=== PATIENT | male | born 1965 | race Two or more races ===

== ENCOUNTER 2017-07-01 12:00 | Emergency (ER) | payer OTHER ==
[2017-07-01] MEDS ORDERED: NS 1,000 ML IV ONE (12:58)
[2017-07-01 13:05] LABS: PLATELET COUNT 236 10^3/uL (150-400)
[2017-07-01] MEDS ORDERED: IOPAMIDOL (ISOVUE-300) 100 ML BTL ONE (13:25)
--- NOTE | 2017-07-01 14:14 | EDPHY ---
H & P Time Seen by Provider: 07/01/17 12:30 HPI/ROS: CHIEF COMPLAINT: Abdominal pain HISTORY OF PRESENT ILLNESS: Patient presents with generalized abdominal pain. He is visiting from [place] where he has lived since last year. He is originally from [place]. He is in the [employer] [facility] [employer] working for [employer]. He states that 2 or 3 weeks ago he developed abdominal pain. He described it as "all over". It was intermittent and associated with some gassiness. Last Sunday he had 1 episode of diarrhea and then went to the [facility] clinic to be checked out. The doctor there diagnosed him with gastroenteritis and recommended he take loperamide. He has been doing this 3 times a day since last Sunday. Yesterday after dinner he noticed a little bit more pain and he feels distended today. He has had no vomiting. He has had no diarrhea. He states that the pain is slightly more in the upper abdomen than the lower abdomen. Eating sometimes makes it worse but not consistent. He denies fevers. He has had no urinary symptoms. He has had no out of country travel and has not been on any antibiotics recently. REVIEW OF SYSTEMS: Constitutional: No fever, no chills. Eyes: No discharge. ENT: No sore throat. Cardiovascular: No chest pain, no palpitations. Respiratory: No cough, no shortness of breath. Gastrointestinal: Per HPI Genitourinary: No dysuria. Musculoskeletal: No back pain. Skin: No rashes. Neurological: No headache. General Appearance: Alert, no distress. Eyes: Pupils equal and round no pallor or injection. ENT, Mouth: Mucous membranes moist. Respiratory: There are no retractions, lungs are clear to auscultation. Cardiovascular: Regular rate and rhythm. Gastrointestinal: Abdomen is soft, mildly distended, diffuse tenderness to palpation which is also mild. Bowel sounds normal. No peritoneal signs. Neurological: Awake, alert, no neurologic deficits. Skin: Warm and dry, no rashes. Musculoskeletal: Neck is supple nontender. Extremities are symmetrical, full range of motion, no edema. Psychiatric: Patient is oriented X 3, there is no agitation. Medical/surgical history: No medications, no surgeries. Social history: Occasional alcohol. Nonsmoker. Smoking Status: Never smoked Constitutional: Initial Vital Signs Temperature (C) 36.6 C 07/01/17 12:07 Heart Rate 88 07/01/17 12:07 Respiratory Rate 20 07/01/17 12:07 Blood Pressure 144/82 H 07/01/17 12:07 O2 Sat (%) 97 07/01/17 12:07 O2 Delivery Mode Room Air Allergies/Adverse Reactions: No Known Allergies Allergy (Unverified 07/01/17 12:07) Home Medications: Medication Instructions Recorded NK [No Known Home Meds] 07/01/17 Medical Decision Making - Diagnostics Imaging Results: Imaging Impressions Abdomen CT 07/01/17 12:59 Impression: Negative CT examination of the abdomen and pelvis. Results called to Dr. Tsang at 2:00 PM. Imaging: Discussed imaging studies w/ call center support representative Radiologist Differential Diagnosis: Differential diagnosis includes but is not limited to gastroenteritis, diverticulitis, appendicitis, GERD. After evaluation suspect mild food-borne illness although may represent GERD. Suspect the loperamide 3 times a day has been slowing gut motility leading to mild sense of distension. CT scan unremarkable and labs reassuring. Discussed stopping the loperamide, other dietary changes as well as [id number] options. Will be in the area for 2- 3 weeks ago told to follow up here if symptoms worsen. Stable for discharge. - Data Points Laboratory Results: Laboratory Results 07/01/17 12:20 07/01/17 12:20 07/01/17 07/01/17 12:20 12:20 WBC 5.92 10^3/uL 10^3/uL (3.80-9.50) RBC 4.78 10^6/uL 10^6/uL (4.40-6.38) Hgb 14.9 g/dL g/dL (13.7-17.5) Hct 43.6 % % (40.0-51.0) MCV 91.2 fL fL (81.5-99.8) MCH 31.2 pg pg (27.9-34.1) MCHC 34.2 g/dL g/dL (32.4-36.7) RDW 12.5 % % (11.5-15.2) Plt Count 236 10^3/uL 10^3/uL (150-400) MPV 10.1 fL fL (8.7-11.7) Neut % (Auto) 42.4 % % (39.3-74.2) Lymph % (Auto) 45.3 % H % (15.0-45.0) [place] % (Auto) 7.3 % % (4.5-13.0) Eos % (Auto) 4.1 % % (0.6-7.6) Baso % (Auto) 0.7 % % (0.3-1.7) Nucleat RBC Rel Count 0.0 % % (0.0-0.2) Absolute Neuts (auto) 2.52 10^3/uL 10^3/uL (1.70-6.50) Absolute Lymphs (auto) 2.68 10^3/uL 10^3/uL (1.00-3.00) Absolute Monos (auto) 0.43 10^3/uL 10^3/uL (0.30-0.80) Absolute Eos (auto) 0.24 10^3/uL 10^3/uL (0.03-0.40) Absolute Basos (auto) 0.04 10^3/uL 10^3/uL (0.02-0.10) Absolute Nucleated RBC 0.00 10^3/uL 10^3/uL (0-0.01) Immature Gran % 0.2 % % (0.0-1.1) Immature Gran # 0.01 10^3/uL 10^3/uL (0.00-0.10) Sodium 137 mEq/L mEq/L (135-145) Potassium 4.2 mEq/L mEq/L (3.3-5.0) Chloride 101 mEq/L mEq/L (97-110) Carbon Dioxide 26 mEq/l mEq/l (22-31) Anion Gap 10 mEq/L mEq/L (8-16) BUN 12 mg/dL mg/dL (7-23) Creatinine 0.7 mg/dL mg/dL (0.7-1.3) Estimated GFR > 60 Glucose 149 mg/dL H mg/dL (70-100) Calcium 9.0 mg/dL mg/dL (8.5-10.4) Total Bilirubin 0.6 mg/dL mg/dL (0.1-1.4) Conjugated Bilirubin 0.4 mg/dL mg/dL (0.0-0.5) Unconjugated Bilirubin 0.2 mg/dL mg/dL (0.0-1.1) AST 20 IU/L IU/L (17-59) ALT 26 IU/L IU/L (21-72) Alkaline Phosphatase 63 IU/L IU/L (38-126) Total Protein 7.6 g/dL g/dL (6.3-8.2) Albumin 3.9 g/dL g/dL (3.5-5.0) Lipase 85 IU/L IU/L (23-300) Medications Given: Discontinued Medications Sodium Chloride (Ns) 1,000 mls @ 0 mls/hr IV EDNOW ONE; Wide Open PRN Reason: Protocol Stop: 07/01/17 12:59 Last Admin: 07/01/17 13:16 Dose: 1,000 mls Departure - Departure Clinical Impression: Abdominal pain Qualifiers: Abdominal location: generalized Qualified Code(s): R10.84 - Generalized abdominal pain Condition: Good Instructions: Gas and Bloating (ED), Abdominal Pain (ED) Additional Instructions: Stop taking loperamide unless you have diarrhea. Medications to try over-the- counter tomorrow would include Pepto-Bismol as discussed. He can also try over- the-counter acid reducing medication like Zantac. Reduce dairy products that you eat, increase fluids like water and other clear fluids. If he developed more severe pain, vomiting, fever, or diarrhea you can return to this emergency department for recheck. Otherwise follow up with the primary care doctor when you get back to [place]. Referrals: NONE *PRIMARY CARE P,. [Primary Care Provider] - As per Instructions
[2017-07-01 14:36] VITALS: BP 167/80
== END 2017-07-01 14:33 | disposition home or self-care (01) ==
LOC: CED 12:00
DX: R10.84 Generalized abdominal pain (principal); E86.9 Volume depletion, unspecified
CPT/HCPCS: 74177-PO; 80048-PO; 80076-PO; 83690-PO; 85025-PO; Q9967